=== PATIENT | male | born 1985 | race American Indian/Alaskan Native ===

== ENCOUNTER 2020-05-05 01:48 | Emergency (ER) | payer OTHER, MEDICAID ==
[2020-05-05 02:15] VITALS: BP 126/85
--- NOTE | 2020-05-05 03:19 | Cat Scan Report ---
CT head/brain wo con INDICATION / CLINICAL INFORMATION: headache. TECHNIQUE: Axial CT imaging of the brain was obtained without contrast. Coronal and sagittal reformatted imaging obtained and reviewed. All CT scans at this location are performed using CT dose reduction for ALAR A by means of automated exposure control. COMPARISON: None available. FINDINGS: No intracranial hemorrhage, mass, or midline shift. No extra-axial fluid collection or suggestion of acute territorial infarction. The ventricular system and basilar cisterns are unremarkable. Visualized paranasal sinuses are well aerated and clear. Mastoid air cells are well aerated. No kris rial abnormality. IMPRESSION: 1. Negative noncontrasted head CT scan. Signer Name: Padmini Rivera MD Signed: 05/05/2020 3:15 AM Workstation Name: [email or web address]
[2020-05-05] MEDS ORDERED: BUTALB/ACETAMINOPHEN/CAFFEINE TAB PO ONE (03:45)
[2020-05-05] MEDS ORDERED: MECLIZINE 25 MG TAB PO ONE (03:45)
[2020-05-05] MEDS ORDERED: KETOROLAC 30 MG/1 ML INJ IM ONE (03:45)
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
== END 2020-05-05 05:00 | disposition home or self-care (01) ==
LOC: ED 01:48
DX: S06.0X0A Concussion without loss of consciousness, initial encounter (principal); G43.109 Migraine with aura, not intractable, without status migrainosus; V89.2XXA Person injured in unspecified motor-vehicle accident, traffic, initial encounter; Y93.89 Activity, other specified; Y92.410 Unspecified street and highway as the place of occurrence of the external cause; Y99.8 Other external cause status
CPT/HCPCS: 70450; 96372; 99282; J1885